=== PATIENT | male | born 1965 | race African-American/Black ===

== ENCOUNTER 2017-03-31 19:36 | Emergency (ER) | payer MEDICAID ==
[~2017-03-31] VITALS: Ht 177.8 cm; Wt 90.0 kg
[2017-03-31] MEDS ORDERED: NALOXONE 0.4 MG/ML, 1ML IVPush PRN (20:30)
[2017-03-31] MEDS ORDERED: SODIUM CHLORIDE 0.9% 1,000ML IVBOLUS ONE (20:30)
[2017-03-31] MEDS ORDERED: NALOXONE 0.4 MG/ML, 1ML ONE (20:33)
[2017-03-31 20:45] VITALS: BP 105/57
[2017-03-31] MEDS ORDERED: PIOG30TA8 PO (20:49)
[2017-03-31] MEDS ORDERED: INSU100V8 SQ (20:49)
[2017-03-31] MEDS ORDERED: NOVALOG SQ (20:49)
[2017-03-31] MEDS ORDERED: LISI-170 PO (20:49)
[2017-03-31 20:51] LABS: DAU SCREEN DISCLAIMER
[2017-03-31 20:59] LABS: ASPARTATE AMINO TRANSFERASE 42 U/L (15-37); BLOOD UREA NITROGEN 22 mg/dL (7-18)
[2017-03-31] MEDS ORDERED: PLEASE ENTER ALLERGIES MC SCH ×2 (21:00)
[2017-03-31 21:02] LABS: ACETAMINOPHEN < 2 mcg/mL (10-30)
== END 2017-03-31 22:02 | disposition home or self-care (01) ==
LOC: ED 21:52
DX: E11.649 Type 2 diabetes mellitus with hypoglycemia without coma (principal); R45.1 Restlessness and agitation; Z79.4 Long term (current) use of insulin
CPT/HCPCS: 36415; 70450; 71010; 80053; 80307; 80329; 81001; 85025; 87086; 93005; 96360; 99285; J7030; G0480